=== PATIENT | female | born 1995 | race Caucasian/White ===

== ENCOUNTER 2024-11-01 14:42 | Emergency (ER) | payer OTHER, SELFPAY ==
[2024-11-01 15:12] VITALS: BP 131/75; PULSE 91; RESP 16; TEMP 36.7; O2SAT 98
--- OUTSIDE RECORDS SUMMARY | 2024-11-01 16:55 | XMS_ITS | Clinical Summary ---
Author Organization [facility] Address [address] [place] [address] Care Team Providers Care Health Care Manager Name Role Phone Polly Gomez MD Unavailable [phone] Yayo Leon MD Primary Care Provi huseyin Allergies No known active allergies Medications no115/iron/folic acid ( 19 ORAL) Take 1 tablet by mouth daily Active albuterol HFA (PROVENTIL HFA,VENTOLIN HFA,PROAIR HFA) 90 mcg/actuation inhalerIndicatio ns:Mild intermittent asthma without complication Inhale 2 puffs every 6 (six) hours as needed for wheezing 1 each 2 08/27/20 24 Active sulfamethoxazole -trimethoprim (BACTRIM DS) 800-160 mg per tablet Take 1 tablet (160 mg of trimethoprim total) by mouth 2 (two) times a day for 5 days 10 tablet 10/07/19 25 025 valACYclovir (VALTREX) 1 gram tabletIndication s:Herpes labialis Take 2 tablets (2,000 mg total) by mouth 2 (two) times a day for 1 day 4 tablet 10/30/19 25 025 Hospital, Clinic, or Other Facility Administered Medication Ordered Dose Route Frequency Start Date End Date Status levonorgestreL (MIRENA) 21 mcg/24 hr (8 yrs) 52 mg IUDIndications:Preg killian Contraception intrauterine Continuous (implanted device) 03/26/2024 9 Active Active Problems Problem Noted Date Diagnosed Date Herpes labialis 10/30/2024 Routine adult health maintenance 08/27/2024 Mild intermittent asthma without complication Resolved Problems Problem Noted Date Diagnosed Date Resolved Date Acute cystitis with hematuria 10/07/2024 10/30/2024 Dysfunction of both eustachian tubes 08/27/2024 10/30/2024 39 weeks gestation of 12/28/2023 08/27/2024 Encounter for supervision of normal in third trimester 12/18/2023 08/27/2024 Overview (12/18/2023): NOTES: Partner name: 1st Trimester: [] Dating Criteria: [] Labs: [facility]: No results found for: [id number] , [id number] , RUBELIGGNX , [id number] , HEPBSAG , HEPCAB , LABRPR , CHLAMTRACPCR , NGONORRPCR , URINECULTURE , MISCRESULT [] Labs: [facility]: No results found for: ABORH , IDCOOMB , RUBELIGG , [id number] , HEPBSAG , HEPCAB , LABRPR , CTRACHOMATIS , NGONORRHOEAE , MICROBIOLOGY , ORGANISM [] NIPT: [] Carrier screening: [] ASA at 12 weeks: 2nd - 3rd Trimester: [] Anatomy ultrasound: [] Placenta Location: previa or no previa [] echo (if monochorionic, IVF, hx CHD): [] 1h GTT: No results found for: [id number] [] CBC: [] Flu vaccine: [] Rhogam (28 wks if Rh neg): [] Tdap vaccine: [] 32 wk ultrasound: [] RSV vaccine (32-36wks): [] GBS (36 wks): No results found for: STREPBDNA , MICROBIOLOGY Counseling: [] Ultimate Hoops Trainer: [] Circumcision: [] Method of feeding: [] Method of contraception: [] Epidural: [] Route of Delivery: [] Timing of Delivery: [] Childbirth classes Migraine headache 06/06/2010 12/20/2023 Encounters Date Type Department Care Team Description 10/30/2024 9:45 AM GUEST SERVICES Office Visit [facility] Primary Care at [address] [address] Yayo Leon MD Herpes labialis (Primary Dx) 10/13/2024 [facility] [address] [place] [address] 4th Floor [address] [place] [address] Coby Linares 10/08/2024 [facility] [address] [place] [address] 4th Floor [address] [place] [address] Coby Linares 10/07/2024 11:00 AM GUEST SERVICES Office Visit [facility] Primary Care at [address] [address] Yayo Leon MD Acute cystitis with hematuria (Primary Dx); Painful urination; Urgency of urination; Bad odor of urine; Screening exam for skin cancer 08/27/2024 4:30 PM GUEST SERVICES Office Visit [facility] Primary Care at [address] [address] Yayo Leon MD Routine adult health maintenance (Primary Dx); Mild intermittent asthma without complication; Dysfunction of both eustachian tubes from Last 3 Months Immunizations Name Administration Dates Next Due Influenza, Quadrivalent, Spl it, Preservative Free, Intramuscular 05/31/2021 Influenza, Unspecified 07/11/2023(Deferr ed: Patient Refused),06/26/2023(Deferred: Patient Refused) Tdap 03/11/2021 Surgical History Surgery Date Site/Laterality Comments CHOLECYSTECTOMY 09/17/2020 - 09/16/2021 [facility] Medical History Medical History Date Comments Asthma mild intermitten t; albuterol MDI PRN w/ cold symptoms Social History Tobacco Use Types Packs/Day Years Used Date Smoking Tobacco: Never Tobacco Cessation:Counseling Given: Not Answered PHQ-2 Answer Date Recorded PHQ-2 Total Score (If total score is 3 or more points, staff should administer the PHQ-9) 0 08/27/2024 [place] Depression Scale Answer Date Recorded [place] Depression Scale Total 3 12/29/2023 The thought of harming myself has occurred to me . Never 12/29/2023 Personal Safety Answer Date Recorded Have you ever been in or are you currently in a harmful physical or emotional relationship or is someone making you feel afraid or unsafe? Denies 12/28/2023 Comments Unknown Sex and Gender Information Value Date Recorded Sex Assigned at Not on file Legal Sex Female 3:08 AM GUEST SERVICES Gender Identity Not on file Sexual Orientation Not on file Obstetrics History Para Term AB IAB SAB Ectopic Multiple Livin g Live Births 2 2 2 2 2 Date Outcome GA Total Labor Labor/2nd/3rd Weight Sex Type Anes PTL Carolina A1 A5 Name Clin 2020 Term 40w 2d 10h 44m 10h 15m/0h 24m/0h 05m 3.85 kg (8 lb 7.8 oz) M Vag-Sp ont Epidur al,Com bined Spinal /Epidu ral Livin g 8 9 MUNIRA pham MD Complications:None Delivery Location:[facility] ([facility] ) 2023 Term 39w 4d 31h 55m 31h 52m/0h 03m 3.81 kg (8 lb 6.4 oz) F Vagina l Epidur al N Livin g 8 7 Damaris rivera, Wm Salas MD Complications:None Delivery Location:This [facility] ([facility]) Comments 2020: Myron Last Filed Vital Signs Vital Sign Reading Time Taken Comments Blood Pressure 118/70 10/30/2024 9:35 AM GUEST SERVICES Pulse 80 10/30/2024 9:35 AM GUEST SERVICES Temperature 36.6 C (97.8 F) 10/30/2024 9:35 AM GUEST SERVICES Respiratory Rate 16 12/30/2023 7:50 AM CDT Oxygen Saturation 99% 10/30/2024 9:35 AM GUEST SERVICES Inhaled Oxygen Concentration - - Weight 66.7 kg (147 lb) 10/30/2024 9:35 AM GUEST SERVICES Height 165.1 cm (5' 5 ) 10/30/2024 9:35 AM GUEST SERVICES Body Mass Index 24.46 10/30/2024 9:35 AM GUEST SERVICES Plan of Treatment Health Maintenance Due Date Last Done Comments Cervical Cancer Screening 1996 Hepatitis C Screening 1996 Pneumococcal vaccine <65 (1 of 2 - PCV) 2002 Varicella Vaccines (1 of 2 - 13+ 2-dose series) 2009 Hepatitis B Screening 2014 Influenza Vaccine (#1) 2024 05/31/2021 Depression Screening 08/27/2025 08/27/2024, 12/29/2023 Regular Well Visit/Exam 18-64 08/27/2025 08/27/2024 DTaP/Tdap/Td Vaccine (2 - Td or Tdap) 03/11/2031 03/11/2021 HPV Vaccines Aged Out No longer eligi ble based on patient's age to complete this topic Procedures Procedure Name Priority Date/Time Associated Diagnosis Comments POCT URINALYSIS DIPSTICK Routine 10/07/2024 10:50 AM GUEST SERVICES Painful urination Urgency of urination Bad odor of urine from Last 3 Months Results * (ABNORMAL) POCT urinalysis dipstick (10/07/2024 10:50 AM GUEST SERVICES) Color, Urine, POC Yellow Clarity, ur, POC Cloudy(A) Clear Glucose, ur, POC Negative Negative MG/DL Bilirubin, ur, POC Negative Negative, Small, Moderate, Large Ketones, ur, POC Negative Negative Specific [place], POC 10.020(A) 1.003 - 1.030 Blood, ur, POC Moderate(A) Negative pH, ur, POC 6.5 5.0 - 8.0 Protein, ur, POC 30.(A) Negative Urobilinogen, urine, POC 0.2 0.2 - 1.0 mg/dL Nitrite, ur, POC Negative Negative Leukocytes, ur, POC Small(A) Negative Lot Number [id number] Urine 10/07/2024 10:5 0 AM GUEST SERVICES Yayo Leon MD POINT OF CARE TEST ORDERABLES Final Result from Last 3 Months Insurance [employer] ACCESS CHOICE [facility] Advance Directives For more information, please contact: [phone] * Full Code (Latest Code Status on File) Date Activated Date Inactivated Comments 12/29/2023 1:37 AM 12/30/2023 4:34 PM * Full Code Date Activated Date Inactivated Comments 12/28/2023 9:44 PM 12/29/2023 1:37 AM Full CPR in case of cardiopulmonary arrest Care Teams Health Care Manager Relationship Specialty Start Date End Date Yayo Leon MD [address] [place] [address] PCP - General Family Practice 08/27/24 Polly Gomez MD [address] [place] [address] Consulting Physician Obstetrics and Gynecology 12/30/23
--- OUTSIDE RECORDS SUMMARY | 2024-11-01 16:55 | XMS_ITS | Referral Summary ---
Author Organization [facility] Address [address] [place] [address] Care Team Providers Care Acquisitions Logistics Analyst Name Role Phone Polly Gomez MD Unavailable [phone] Yayo Leon MD Primary Care Provi huseyin Encounters Date Type Department Care Team Description 10/30/2024 9:45 AM LEGAL PROCESS SPECIALIST Office Visit [facility] Primary Care at [address] [place] [phone] Yayo Leon MD Herpes labialis (Primary Dx) 10/13/2024 [facility]phone [facility] [address] [place] [address] Floor [address] [place] [address] Coby Linares 10/08/2024 [facility]phone [facility] [address] [place] [address] Floor [address] [place] [address] Coby Linares 10/07/2024 11:00 AM LEGAL PROCESS SPECIALIST Office Visit [facility] Primary Care at [address] [place] [phone] Yayo Leon MD Acute cystitis with hematuria (Primary Dx); Painful urination; Urgency of urination; Bad odor of urine; Screening exam for skin cancer 08/27/2024 4:30 PM LEGAL PROCESS SPECIALIST Office Visit [facility] Primary Care at [address] [address] Yayo Leon MD Routine adult health maintenance (Primary Dx); Mild intermittent asthma without complication; Dysfunction of both eustachian tubes from Last 3 Months Allergies No known active allergies Medications no115/iron/folic [...] [] Labs: [facility]: No results found for: [id number] , [id number] , RUBELIGGNX , [id number] , HEPBSAG , HEPCAB , LABRPR , CHLAMTRACPCR , NGONORRPCR , URINECULTURE , MISCRESULT [] Labs: [facility]: No results found for: ABORH , IDCOOMB , RUBELIGG , [id number] , HEPBSAG , HEPCAB , LABRPR , CTRACHOMATIS , NGONORRHOEAE , MICROBIOLOGY , ORGANISM [] NIPT: [] Carrier screening: [] ASA at 12 weeks: 2nd - 3rd Trimester: [] Anatomy ultrasound: [] Placenta Location: previa or no previa [] echo (if monochorionic, IVF, hx CHD): [] 1h GTT: No results found for: [id number] [] CBC: [] Flu vaccine: [] Rhogam (28 wks if Rh neg): [] Tdap vaccine: [] 32 wk ultrasound: [] RSV vaccine (32-36wks): [] GBS (36 wks): No results found for: STREPBDNA , MICROBIOLOGY Counseling: [] Nail Technician: [] Circumcision: [] Method of feeding: [] Method of contraception: [] Epidural: [] Route of Delivery: [] Timing of Delivery: [] Childbirth classes Migraine headache 06/06/2010 12/20/2023 Immunizations Name Administration Dates Next Due Influenza, Quadrivalent, Spl it, Preservative Free, Intramuscular 05/31/2021 Influenza, Unspecified 07/11/2023(Deferr ed: Patient Refused),06/26/2023(Deferred: Patient Refused) Tdap 03/11/2021 Social History Tobacco Use Types Packs/Day Years Used Date Smoking Tobacco: Never Tobacco Cessation:Counseling Given: Not Answered PHQ-2 Answer Date Recorded PHQ-2 Total Score (If total score is 3 or more points, staff should administer the PHQ-9) 0 08/27/2024 [place] Depression Scale Answer Date Recorded [place] Depression Scale Total 3 12/29/2023 The thought [...] on file Legal Sex Female 3:08 AM LEGAL PROCESS SPECIALIST Gender Identity Not on file Sexual Orientation Not on file Last Filed Vital Signs Vital Sign Reading Time Taken Comments Blood Pressure 118/70 10/30/2024 9:35 AM LEGAL PROCESS SPECIALIST Pulse 80 10/30/2024 9:35 AM LEGAL PROCESS SPECIALIST Temperature 36.6 C (97.8 F) 10/30/2024 9:35 AM LEGAL PROCESS SPECIALIST Respiratory Rate 16 12/30/2023 7:50 AM CDT Oxygen Saturation 99% 10/30/2024 9:35 AM LEGAL PROCESS SPECIALIST Inhaled Oxygen Concentration - - Weight 66.7 kg (147 lb) 10/30/2024 9:35 AM LEGAL PROCESS SPECIALIST Height 165.1 cm (5' 5 ) 10/30/2024 9:35 AM LEGAL PROCESS SPECIALIST Body Mass Index 24.46 10/30/2024 9:35 AM LEGAL PROCESS SPECIALIST Plan of Treatment Not on file Procedures Procedure Name Priority Date/Time Associated Diagnosis Comments POCT URINALYSIS DIPSTICK Routine 10/07/2024 10:50 AM LEGAL PROCESS SPECIALIST Painful urination Urgency of urination Bad odor of urine from Last 3 Months Results * (ABNORMAL) POCT urinalysis dipstick (10/07/2024 10:50 AM LEGAL PROCESS SPECIALIST) Color, Urine, POC Yellow Clarity, ur, POC Cloudy(A) Clear Glucose, ur, POC Negative Negative MG/DL Bilirubin, ur, POC Negative Negative, Small, Moderate, Large Ketones, ur, POC Negative Negative Specific [place], POC 10.020(A) 1.003 - 1.030 Blood, ur, POC Moderate(A) Negative pH, ur, POC 6.5 5.0 - 8.0 Protein, ur, POC 30.(A) Negative Urobilinogen, urine, POC 0.2 0.2 - 1.0 mg/dL Nitrite, ur, POC Negative Negative Leukocytes, ur, POC Small(A) Negative Lot Number [id number] Urine 10/07/2024 10:5 0 AM LEGAL PROCESS SPECIALIST Yayo Leon MD POINT OF CARE TEST ORDERABLES Final Result from Last 3 Months Insurance [employer] ACCESS CHOICE [facility] Advance Directives For more information, please contact: [phone] * Full Code (Latest Code Status on File) Date Activated Date Inactivated Comments 12/29/2023 1:37 AM 12/30/2023 4:34 PM * Full Code Date Activated Date Inactivated Comments 12/28/2023 9:44 PM 12/29/2023 1:37 AM Full CPR in case of cardiopulmonary arrest Care Teams Acquisitions Logistics Analyst Relationship Specialty Start Date End Date Yayo Leon MD [address] [place] [address] PCP - General Family Practice 08/27/24 Polly Gomez MD [address] [facility] [address] [place] [address] Consulting Physician Obstetrics and Gynecology 12/30/23
--- OUTSIDE RECORDS SUMMARY | 2024-11-01 16:55 | XMS_ITS | Clinical Summary ---
Author Organization [facility] Address [address] [place] [address] Phone Care Team Providers Care Scrub Technician Name Role Phone Marty Lee Primary Care Provider Allergies Active Allergy Reactions Criticality Noted Date Comments Pollen Extracts Cough Low 11/12/2020 Medications fexofenadine HCl (DENISE ORAL) Take by mouth. Active Active Problems Problem Noted Date Diagnosed Date Normal labor 06/05/2021 Asthma 06/05/2021 RUQ abdominal pain 03/15/2021 Gallbladder attack Normal intrauterine in third trimester Immunizations Immunization Administration Dates Next Due (ADACEL/BOOSTRIX)(10 YR UP) TDAP VACCINE, 0.5ML, IM 03/11/2021 INFLUENZA VACCINE QUADRIVALENT 6 MOS UP PF IM Family History Medical History Relation Name Comments Healthy Father Healthy Mother Relation Name Status Comments Father Alive Mother Alive Social History Tobacco Use Types Packs/Day Years Used Date Smoking Tobacco: Never Smokeless Tobacco: Never Alcohol Use Standard Drinks/Week Comments Not Currently 0 (1 standard drink = 0.6 oz pur e alcohol) Comments No Sex and Gender Information Value Date Recorded Sex Assigned at Not on file Legal Sex Female 1:22 PM NEUROPSYCHOLOGIST Gender Identity Not on file Sexual Orientation Not on file Last Filed Vital Signs Vital Sign Reading Time Taken Comments Blood Pressure 120/70 10/19/2022 10:03 AM NEUROPSYCHOLOGIST Pulse 57 09/06/2021 9:49 PM NEUROPSYCHOLOGIST Temperature 36.2 C (97.1 F) 09/06/2021 9:49 PM NEUROPSYCHOLOGIST Respiratory Rate 16 09/06/2021 9:49 PM NEUROPSYCHOLOGIST Oxygen Saturation 100% 09/06/2021 9:49 PM NEUROPSYCHOLOGIST Inhaled Oxygen Concentration - - Weight 64.4 kg (142 lb) 10/19/2022 10:03 AM NEUROPSYCHOLOGIST Height 165.1 cm (5' 5 ) 09/06/2021 1:27 PM NEUROPSYCHOLOGIST Body Mass Index 23.63 09/06/2021 1:27 PM NEUROPSYCHOLOGIST Plan of Treatment Health Maintenance Due Date Last Done Comments HEPATITIS B VACCINES (1 of 3 - 19+ 3-dose series) 2015 CERVICAL CANCER SCREENING 2017 INFLUENZA VACCINE (#1) 2024 05/31/2021 DTAP/TDAP/TD VACCINES (2 - T d or Tdap) 03/11/2031 03/11/2021 HPV VACCINES Aged Out No longer eligi ble based on patient's age to complete this topic Medical Devices Implanted Type Area Midwife Practitioner Device Identifier Shelf Expiration Date Model / Serial / Lot Endo Clip Ii 10mm [id number] - [id number] Implanted:Qty : 1 on 09/06/2021 by Zan Womack DO at [facility] Clip N/A: Abdomen [employer] - COVIDIEN [id number] 06/16/2025 [id number] / / [id number] Insurance [employer] Commercial Advance Directives For more information, please contact: [phone] * Full Code (Latest Code Status on File) Date Activated Date Inactivated Comments 09/06/2021 7:46 PM 09/07/2021 12:32 AM * Full Code Date Activated Date Inactivated Comments 09/06/2021 4:17 PM 09/06/2021 7:46 PM * Full Code Date Activated Date Inactivated Comments 09/06/2021 1:28 PM 09/06/2021 4:17 PM * Full Code Date Activated Date Inactivated Comments 03/15/2021 12:29 AM 03/16/2021 3:10 PM * Full Code Date Activated Date Inactivated Comments 03/14/2021 9:23 PM 03/15/2021 12:29 AM Care Teams Scrub Technician Relationship Specialty Start Date End Date Marty Lee ANP [address] [place] [address] PCP - General Nurse Practitioner Adult Health 11/12/20
--- NOTE | 2024-11-01 17:22 | ED_ITS ---
HPI - Skin/Abscess/Foreign Bdy General Chief complaint: Skin/Abscess/Foreign Body Stated complaint: fever blister outbreak Time Seen by Provider: 11/01/24 16:45 Source: patient Mode of arrival: ambulatory Limitations: no limitations History of Present Illness HPI narrative: This is a 29-year-old female who presents to the ED for chief complaint of herpes outbreak to the lower and upper lip. States that she has had isolated cold sores in the distant past but never had an outbreak like this. States that she was seen by PCP earlier this week gave a days worth of b.i.d. Valtrex for home. States that she took this on Sunday and has continued to have pain and blistering lesions to the lips. Denies immunocompromised condition. States that she did have a prodrome of fever and feeling ill prior to the outbreak but the symptoms have subsided. States that is been difficult to the even drink water due to the pain and she feels very dehydrated. Related Data Allergies Allergy/AdvReac Type Severity Reaction Status Date / Time No Known Allergies Allergy Verified 11/01/24 14:43 Review of Systems 2 Review of Systems: All systems as dictated in HPI Exam 2 Narrative: GENERAL: Well-appearing, well-nourished, and in no acute distress. HEAD: Normocephalic, atraumatic. EYES: PERRLA and EOMI. ENT: See skin Nares clear, no rhinorrhea or epistaxis. Mucous membranes moist. Oropharynx without tonsillar hypertrophy exudate or other lesions. NECK: Supple. No adenopathy or masses. CHEST: No respiratory distress. Clear to auscultation. No wheezes rales or rhonchi HEART: Regular rate and rhythm. No murmur heard. Normal peripheral pulses. ABDOMEN: Soft, nontender, nondistended, normal active bowel sounds. MSK: Normal range of motion. No edema. SKIN: Erythematous blistering, vesicular rash to primarily the lower lip. Some involvement of the upper lip. No involvement of the nose, eyes or ears. No involvement of the buccal mucosa or posterior pharynx. NEURO: Alert and oriented x4. No focal deficits. PSYCH: Normal mood and affect. Course Vital Signs Vital signs: Vital Signs Temperature 98.0 F 11/01/24 15:12 Pulse Rate 91 11/01/24 15:12 Respiratory Rate 16 11/01/24 15:12 Blood Pressure 131/75 11/01/24 15:12 Pulse Oximetry 98 11/01/24 15:12 Temperature 98.0 F 11/01/24 15:12 Pulse Rate 83 11/01/24 18:53 Respiratory Rate 20 11/01/24 18:53 Blood Pressure 114/69 11/01/24 18:53 Pulse Oximetry 99 11/01/24 18:53 MDM - Skin/Abscess/Foreign Bdy MDM Narrative Medical decision making narrative: This is a 29-year-old female who presents to the ED for chief complaint of HSV 1 outbreak. Vitals are normal. Exam shows remarkable vesicular rash to the lower lip and lesser so to the upper lip. The area is inflamed and erythematous but not necrotizing. Lab work shows normal white count on CBC. CMP remarkable for elevated anion gap and low bicarb, likely due to starvation/dehydration. Patient was given L of fluids and Toradol here with great improvement of symptoms. She was given week-long prescription of Valtrex for HSV 1 outbreak Patient will be discharged in stable condition. Supportive measures discussed and return precautions given. Patient is understanding and agreeable with plan for discharge with PCP follow-up. Differential Diagnosis Differential diagnosis: Likely abscess of skin or subcutaneous tissue, viral exanthem, urticaria, herpes zoster, allergic reaction to drug, insect bites, contact dermatitis and other (Herpes simplex virus) Lab Data 11/01/24 17:37 11/01/24 17:37 Labs: Lab Results 11/01/24 Range/Units 17:37 WBC 7.6 (4.5-10.0) K/mm3 RBC 5.11 (4.2-5.4) M/mm3 Hgb 14.0 (12.0-15.0) g/dL Hct 44.4 (37.0-47.0) % MCV 86.9 (80-100) fl MCH 27.4 (26-34) pg MCHC 31.5 L (32-36) g/dl RDW 12.8 (11.5-14.5) % Plt Count 385 H (150-375) k/mm3 MPV 9.8 (7.4-10.4) fl Immature Gran % (Auto) 0.5 (0-0.5) % Neut % (Auto) 55.2 (45.5-73.1) % Lymph % (Auto) 34.4 (18.3-44.2) % [place] % (Auto) 8.6 H (2.6-8.5) % Eos % (Auto) 0.8 (0-4.4) % Baso % (Auto) 0.5 (0.2-1.2) % Lymph # (Auto) 2.63 (0.9-3.2) K/mm3 [place] # (Auto) 0.7 H (0.1-0.6) K/mm3 Eos # (Auto) 0.1 (0-0.3) K/mm3 Baso # (Auto) 0.0 (0.0-0.1) K/mm3 Abs Immat Gran (auto) 0.04 H (0.00-0.031) K/mm3 Absolute Neuts (auto) 4.2 (1.3-6.7) K/mm3 Absolute Nucleated RBC 0.000 (0.0-0.012) K/mm3 Nucleated RBC % 0.0 (0.0-0.2) % Sodium 140 (137-145) mmol/L Potassium 4.2 (3.4-5.0) mmol/L Chloride 104 (98-107) mmol/L Carbon Dioxide 14 L (22-30) mmol/L Anion Gap 22 H (4-12) mmol/L BUN 12 (7-17) mg/dL Creatinine 0.47 L (0.7-1.0) mg/dL Estim Creat Clear Calc 133 ml/min Estimated GFR > 60 (59 - ) Glucose 79 (65-110) mg/dL Calcium 9.6 (8.4-10.2) mg/dL Discharge Plan Discharge Clinical Impression: Herpes labialis Patient Disposition: Home, Self-Care Condition: Stable Instructions: Antibiotic Form, Oral Herpes Infection (ED) Additional Instructions: Your exam today is remarkable for oral herpes infection. Please take Valtrex twice per day for the next 7 days. Patient Language: Belgian Prescriptions: New valacyclovir 1 gram tablet 1,000 mg PO Q12H Qty: 14 0RF Follow-up/Referrals: UNKNOWN,DOCTOR [Primary Care Provider] - Time of Disposition: 17:54
[2024-11-01] MEDS: LACTATED RINGERS 1,000 ML 999 ML IV CONT (17:36)
[2024-11-01] MEDS: ONDANSETRON INJ 4 MG/2 ML VIAL IV PUSH (17:36)
[2024-11-01] MEDS: KETOROLAC 15 MG/ML VIAL (*BKC) IV PUSH (17:36)
[2024-11-01 17:47] LABS: Basophils Percent Auto 0.5 % (0.2-1.2); Eosinophils Absolute Auto 0.1 K/mm3 (0-0.3); Eosinophils Percent Auto 0.8 % (0-4.4); Hematocrit 44.4 % (37.0-47.0); Immature Granulocyte Absolute 0.04 K/mm3 (0.00-0.031); Immature Granulocyte Percent A 0.5 % (0-0.5); Lymphocytes Absolute Auto 2.63 K/mm3 (0.9-3.2); Lymphocytes Percent Auto 34.4 % (18.3-44.2); Mean Corpuscular HGB Conc 31.5 g/dl (32-36); Mean Corpuscular Hemoglobin 27.4 pg (26-34); Mean Corpuscular Volume 86.9 fl (80-100); Mean Platelet Volume 9.8 fl (7.4-10.4); Monocytes Absolute Auto 0.7 K/mm3 (0.1-0.6); Monocytes Percent Auto 8.6 % (2.6-8.5); Neutrophils Absolute Auto 4.2 K/mm3 (1.3-6.7); Neutrophils Percent Auto 55.2 % (45.5-73.1); Platelet Count Result 385 k/mm3 (150-375); Red Blood Count 5.11 M/mm3 (4.2-5.4); Red Cell Distribution Width 12.8 % (11.5-14.5); White Blood Count 7.6 K/mm3 (4.5-10.0)
[2024-11-01 18:20] LABS: Anion Gap 22 mmol/L (4-12); Blood Urea Nitrogen 12 mg/dL (7-17); Calcium 9.6 mg/dL (8.4-10.2); Carbon Dioxide 14 mmol/L (22-30); Chloride 104 mmol/L (98-107); Estimated CRCL calculation 133 ml/min; Estimated Glomerular Filt Rate > 60; Glucose 79 mg/dL (65-110); Potassium 4.2 mmol/L (3.4-5.0); Sodium 140 mmol/L (137-145)
[2024-11-01 18:53] VITALS: BP 114/69; PULSE 83; RESP 20; O2SAT 99
== END 2024-11-01 18:55 | disposition home or self-care (01) ==
PROVIDERS: Emergency Provider Physician Assistant
DX: B00.1 Herpesviral vesicular dermatitis (principal)
CPT/HCPCS: 36415; 80048; 85025; 96361; 96374; 96375; 99284; J1885; J2405; J7120